=== PATIENT | female | born 1990 | race Hispanic/Latino ===

== ENCOUNTER 2023-10-29 17:00 | Inpatient (IN) | payer SELFPAY ==
[~2023-10-29] VITALS: Ht 157.5 cm; Wt 65.8 kg
[2023-10-29] MEDS ORDERED: NALOXONE HCL 0.4 MG/1 ML ML IV PRN (18:00)
[2023-10-29] MEDS ORDERED: LACTATED RINGERS 500 ML 500 ML IV PRN (18:00)
[2023-10-29] MEDS ORDERED: EPHEDRINE SULFATE 50 MG/ML AMPULE IVP PRN (18:00)
[2023-10-29 18:37] LABS: ADD UA MICROSCOPIC YES; APPEARANCE,URINE CLEAR (CLEAR); BILIRUBIN,URINE NEGATIVE (NEGATIVE); COLOR,URINE YELLOW (YELLOW); GLUCOSE, URINE (UA) NEGATIVE (NEGATIVE); KETONES,URINE NEGATIVE (NEGATIVE); LEUKOCYTE ESTERASE ,URINE NEGATIVE Leu/uL (NEGATIVE); NITRATE,URINE NEGATIVE (NEGATIVE); OCCULT BLOOD,URINE NEGATIVE (NEGATIVE); PH,URINE 6.5 (5.0-8.0); PROTEIN,URINE 50 mg/dL (NEGATIVE); UROBILINOGEN,URINE 0.2 mg/dL (0.2-1.0)
[2023-10-29 18:43] LABS: MUCUS,URINE MOD LPF (None Seen); SQUAMOUS EPITHELIAL CELL,UR RARE /HPF (0-2)
[2023-10-29] MEDS: AMPICILLIN 2GM+NS 100ML 100 ML IV SCH (19:08)
[2023-10-29] MEDS: LACTATED RINGERS 1000ML 1,000 ML IV PRN (19:09)
[2023-10-29 19:12] LABS: HEMATOCRIT 36.5 % (36-48); MEAN CORPUSCULAR HEMOGLOBIN 27.6 pg (27.0-33.0); MEAN CORPUSCULAR HGB CONC 32.9 g/dL (32.0-36.0); MEAN CORPUSCULAR VOLUME 84.1 fL (79-99); RED BLOOD CELL COUNT(AUTO) 4.34 MIL/uL (4.00-5.50); RED CELL DISTRIBUTION WIDTH 14.2 % (11.0-15.5); WHITE BLOOD COUNT (AUTO) 12.2 K/uL (4.8-10.8)
[2023-10-29] MEDS: DINOPROSTONE 10 MG VAGINAL SUPP VG ONE (19:27)
[2023-10-29 19:45] LABS: AMPHET/METH SCREEN,URINE NEGATIVE (NEGATIVE); BARBITURATE SCREEN, URINE NEGATIVE (NEGATIVE); BENZODIAZEPINES SCREEN,URINE NEGATIVE (NEGATIVE); CANNABINOID SCREEN,URINE NEGATIVE (NEGATIVE); COCAINE SCREEN,URINE NEGATIVE (NEGATIVE); OPIATE SCREEN,URINE NEGATIVE (NEGATIVE); PHENCYCLIDINE SCREEN,URINE NEGATIVE (NEGATIVE)
[2023-10-29 19:53] LABS: HIV 1&2 ANTIBODY Non-Reactive (Negative); HIV-1 p24 Antigen Non-Reactive (Negative)
[2023-10-29] MEDS: AMPICILLIN 1GM+NS 50ML 50 ML IV SCH (23:16)
[2023-10-29] MEDS: MEPERIDINE-PF 50 MG/ML SYG IVP PRN (23:16)
[2023-10-29] MEDS: PROMETHAZINE HCL 25 MG/ML 1ML AMPULE IM PRN (23:17)
[2023-10-30] MEDS: MISOPROSTOL 200 MCG TABLET ONE ×2 (01:32→01:33)
[2023-10-30] MEDS: LIDOCAINE HCL 1% 20 ML VIAL ONE (02:24)
[2023-10-30] MEDS ORDERED: MEASLES/MUMPS/RUBELLA VACCINE, LIVE 0.5 ML/VIAL SQ PRN (03:00)
[2023-10-30] MEDS ORDERED: DIPH,PERTUSS(ACELL),TET VAC/PF 0.5 ML VIAL IM PRN (03:00)
[2023-10-30] MEDS ORDERED: LANOLIN 30GM OINTMENT TP PRN (03:00)
[2023-10-30] MEDS ORDERED: acetaMINOPHEN WITH coDEINE 1 TAB TAB PO PRN (03:00)
[2023-10-30] MEDS ORDERED: acetaMINOPHEN 325 MG TAB PO PRN (03:00)
[2023-10-30] MEDS ORDERED: OXYTOCIN-LR 30 UNITS/500ML 500 ML IV SCH (04:00)
[2023-10-30] MEDS: OXYTOCIN-LR 30 UNITS/500ML 500 ML IV SCH ×2 (04:47→04:48)
[2023-10-30 08:00] VITALS: BP 112/59; PULSE 83; RESP 18
[2023-10-30] MEDS: DOCUSATE SODIUM 100 MG CAP PO SCH (09:28)
[2023-10-30] MEDS: IBUPROFEN 600 MG TABLET PO PRN (09:28)
[2023-10-30] MEDS: BENZOCAINE/LANOLIN/ALOE VERA 60 ML AEROSOL TP PRN (09:29)
[2023-10-30] MEDS: WITCH HAZEL 1 PAD TP PRN (09:29)
[2023-10-30 11:28] VITALS: BP 108/63; PULSE 83; RESP 17
[2023-10-30 13:37] LABS: RAPID PLASMA REAGIN NONREACTIVE (NONREACTIVE)
[2023-10-30 16:23] VITALS: BP 105/63; PULSE 77; RESP 16
[2023-10-30] MEDS: AZITHROMYCIN 250 MG TABLET PO ONE (16:26)
[2023-10-30 19:05] VITALS: BP 117/66; PULSE 107; RESP 20
[2023-10-30] MEDS ORDERED: PREN1TAB26 PO (19:05)
[2023-10-30 23:00] VITALS: BP 115/72; PULSE 94; RESP 23
[2023-10-31 04:06] VITALS: BP 112/66; PULSE 84; RESP 21
[2023-10-31 06:46] LABS: HEMATOCRIT 28.3 % (36-48); MEAN CORPUSCULAR HEMOGLOBIN 27.8 pg (27.0-33.0); MEAN CORPUSCULAR HGB CONC 33.2 g/dL (32.0-36.0); MEAN CORPUSCULAR VOLUME 83.7 fL (79-99); RED BLOOD CELL COUNT(AUTO) 3.38 MIL/uL (4.00-5.50); RED CELL DISTRIBUTION WIDTH 14.6 % (11.0-15.5); WHITE BLOOD COUNT (AUTO) 13.5 K/uL (4.8-10.8)
[2023-10-31 07:30] VITALS: BP 113/67; PULSE 73; RESP 18
[2023-10-31 11:25] VITALS: BP 106/61; PULSE 76; RESP 20
== END 2023-10-31 15:15 | disposition home or self-care (01) | DRG 807 ==
LOC: LDH 17:00 → WSH 10-30 08:05
PROVIDERS: ADMIT Obstetrics & Gynecology; ATTEND Obstetrics & Gynecology
PROC: 10E0XZZ Delivery of Products of Conception, External Approach (ICD-10-PCS; principal; 2023-10-30)
PROC: 0KQM0ZZ Repair Perineum Muscle, Open Approach (ICD-10-PCS; 2023-10-30)
DX: O41.03X0 Oligohydramnios, third trimester, not applicable or unspecified (principal); Z37.0 Single live birth; O48.0 Post-term pregnancy; O70.1 Second degree perineal laceration during delivery; Z3A.41 41 weeks gestation of pregnancy
CPT/HCPCS: 36415; 80305; 81001; 85027; 86592; 86701; 86850; 86900; 86901; 87340; 87390; 87491; 87591; A4351; G0378; J0290; J2175; J2210; J2550